=== PATIENT | female | born 1980 | race American Indian/Alaskan Native ===

== ENCOUNTER 2017-12-17 20:48 | Emergency (ER) | payer MEDICAID ==
[2017-12-17 20:54] VITALS: BP 145/99
[2017-12-17] MEDS ORDERED: methylPREDNISolone Sodium Succinate 125 MG/2 ML SDV IVPUSH ONE (21:41)
--- NOTE | 2017-12-17 21:41 | EDM.PDOC ---
ED HPI GENERAL MEDICAL PROBLEM - General Chief Complaint: Allergic Reaction Stated Complaint: AMBULANCE-BEE STING ALLERGIC REATION Time Seen by Provider: 12/17/17 21:09 Source of Information: Reports: Patient, EMS, EMS Notes Reviewed, Family, RN, RN Notes Reviewed History Limitations: Reports: No Limitations - History of Present Illness INITIAL COMMENTS - FREE TEXT/NARRATIVE: Pt to Er per [facility] with c/o bee sting to the right upper arm. She gave herself her epi pen which helped the swelling. Ambulance gave Benadryl which she states also helped. Patient states she does not feel as her mouth, tongue, lip swelling , or difficulty breathing, stridor. She c/o swelling at the right upper arm at the sight of the sting. Onset: Today, Sudden Right Shoulder Pain Score (Numeric/FACES): 5 - Related Data Allergies Allergy/AdvReac Type Severity Reaction Status Date / Time amoxicillin [Amoxicillin] Allergy Hives Verified 12/17/17 20:54 cephalexin monohydrate Allergy Rash Verified 12/17/17 20:54 [From Keflex] Penicillins Allergy Hives Verified 12/17/17 20:54 sulfamethoxazole Allergy Hives Verified 12/17/17 20:54 [From Bactrim] trimethoprim [From Bactrim] Allergy Hives Verified 12/17/17 20:54 venom-honey bee Allergy Cannot Verified 12/17/17 20:54 [bee venom (honey bee)] Remember Home Meds: Home Meds . [No Known Home Meds] 06/21/16 [History] Past Medical History - Past Health History Medical/Surgical History: Denies Medical/Surgical History Other HEENT History: wears glasses Respiratory History: Reports: PE - Infectious Disease History Infectious Disease History: Reports: Chicken Pox - Past Surgical History GI Surgical History: Reports: Cholecystectomy Female Surgical History: Reports: Hysterectomy, Tubal Ligation Musculoskeletal Surgical History: Reports: Arthroscopic Knee Social & Family History - Family History Family Medical History: Noncontributory - Tobacco Use Smoking Status *Q: Never Smoker Second Hand Smoke Exposure: No - Caffeine Use Caffeine Use: Reports: None - Recreational Drug Use Recreational Drug Use: No ED ROS ALLERGIC REACTION - Review of Systems Review Of Systems: ROS reveals no pertinent complaints other than HPI. ED EXAM GENERAL NO PERIP PULSE - Physical Exam Exam: See Below Exam Limited By: No Limitations General Appearance: Alert, WD/WN, No Apparent Distress Eye Exam: Bilateral Eye: EOMI, Normal Inspection Ears: Normal External Exam, Hearing Grossly Normal Nose: Normal Inspection Throat/Mouth: Normal Inspection, Normal Lips, Normal Teeth, Normal Gums, Normal Oropharynx, Normal Voice, No Airway Compromise Head: Atraumatic, Normocephalic Neck: Normal Inspection, Supple, Non-Tender, Full Range of Motion Respiratory/Chest: No Respiratory Distress, Lungs Clear, Normal Breath Sounds, No Accessory Muscle Use, Chest Non-Tender Cardiovascular: Normal Peripheral Pulses, Regular Rate, Rhythm, No Edema, No Gallop, No JVD, No Murmur, No Rub GI/Abdominal: Normal Bowel Sounds, Soft, Non-Tender (Female) Exam: Deferred Rectal (Female) Exam: Deferred Back Exam: Normal Inspection, Full Range of Motion Extremities: Normal Inspection, Normal Range of Motion, Non-Tender, No Pedal Edema, Normal Capillary Refill, Arm Pain (right upper arm) Neurological: Alert, Oriented, CN II-XII Intact, Normal Cognition, Normal Gait, Normal Reflexes, No Motor/Sensory Deficits Psychiatric: Normal Affect, Normal Mood Skin Exam: Warm, Dry, Intact, Normal Color, No Rash Lymphatic: No Adenopathy Course - Vital Signs Last Recorded V/S: Last Vital Signs Temp 99 F 12/17/17 20:48 Pulse 88 12/17/17 20:48 Resp 18 12/17/17 20:48 BP 145/99 H 12/17/17 20:48 Pulse Ox 98 12/17/17 20:48 - Orders/Labs/Meds Meds: Medications Discontinued Medications Generic Name Dose Route Start Last Admin Trade Name Jeancarlos PRN Reason Stop Dose Admin Methylprednisolone Sodium Succinate 125 mg 12/17/17 21:41 12/17/17 21:48 Solu-Medrol IVPUSH 12/17/17 21:42 125 mg ONETIME ONE Administration - Re-Assessments/Exams Free Text/Narrative Re-Assessment/Exam: 12/18/17 Patient states she felt as though her throat was tight. Solu-Medrol was given. Patient states relief. Departure - Departure Time of Disposition: 21:38 Disposition: Home, Self-Care 01 Condition: Fair Clinical Impression: Bee sting-induced anaphylaxis Qualifiers: Encounter type: initial encounter Injury intent: accidental or unintentional Qualified Code(s): T63.441A - Toxic effect of venom of bees, accidental ( unintentional), initial encounter - Discharge Information Instructions: Anaphylactic Reaction, Adult, [id number], Bee, Wasp, or Hornet Sting, Adult Referrals: PCP,None [Primary Care Provider] - Forms: ED Department Discharge Additional Instructions: Re-order your epi pens RX: Prednisone Follow up with your primary care facility May take Benadryl as directed Drink plenty of fluids
== END 2017-12-17 22:29 | disposition home or self-care (01) ==
LOC: DL.ED 20:48
DX: T63.441A Toxic effect of venom of bees, accidental (unintentional), initial encounter (principal); Z88.1 Allergy status to other antibiotic agents; Z88.8 Allergy status to other drugs, medicaments and biological substances; Z91.030 Bee allergy status
CPT/HCPCS: 96374; 99285; J2930